=== PATIENT | male | born 1935 | race Caucasian/White ===

== ENCOUNTER 2019-07-15 20:23 | Observation (INO) | payer MEDICARE, BC ==
--- NOTE | 2019-07-15 20:40 | ED ---
Shortness of Breath - HPI Summary HPI Summary: Patient is a 83 y/o M w/ Hx of COPD who presents to [facility] via EMS with complaints of SOB onsetting 1700 07/15/19. EMS administered two duonebs and 10 mg dexamethasone, patient's o2 sat is reported to have improved from 84 to 100% on RA. He states that he was feeling fine earlier today and states that Sx are resolved at present. Patient additionally makes note of a cough productive of yellow-ernesto phlegm. Fever is denied. PMHx of CHF and pacemaker is noted. He denies chest pain and states that he did not take nitro. EMS reports BG of 103, BP in 150s, EKG showed SR with rate in 70s. On triage, pain is denied. Home medications and allergies are reviewed. - History of Current Complaint Chief Complaint: EDShortnessOfBreath Time Seen by Provider: 07/15/19 20:26 Hx Obtained From: Patient, EMS Onset/Duration: Lasting Hours, Resolved Current Severity: None Alleviating Factors: EMS Tx Associated Signs & Symptoms: Cough (Productive) - Allergy/Home Medications Allergies/Adverse Reactions: Allergies Allergy/AdvReac Type Severity Reaction Status Date / Time ertapenem Allergy Severe Hives Verified 07/16/19 03:51 meperidine Allergy Intermediate Rash Verified 07/16/19 03:51 Home Medications: Home Medications Bumetanide 1 mg PO QAM 07/15/19 [History Confirmed 07/16/19] Glimepiride (NF) 2 mg PO BID 07/15/19 [History Confirmed 07/15/19] PMH/Surg Hx/FS Hx/Imm Hx Endocrine/Hematology History: Reports: Hx Anticoagulant Therapy, Hx Diabetes Denies: Hx Blood Disorders, Hx Blood Transfusions, Hx Bone Marrow Disease, Hx Systemic Lupus Erythematosus, Hx Sickle Cell Disease, Hx Thyroid Disease, Hx Anemia, Hx Unexplained Bleeding, Other Endocrine/Hematological Disorders Cardiovascular History: Reports: Hx Angina, Hx Auto Implanted Cardiovert Defib, Hx Congestive Heart Failure, Hx Coronary Artery Disease, Hx Hypercholesterolemia , Hx Hypertension, Hx Myocardial Infarction, Hx Pacemaker/ICD, Hx Rheumatic Fever Denies: Hx Aneurysm, Hx Angioplasty, Hx Cardiac Arrest, Hx Cardiomegaly, Hx Congenital Heart Disease, Hx Deep Vein Thrombosis, Hx Hypotension, Hx Peripheral Vascular Disease, Hx Syncope, Hx Valvular Heart Disease, Other Cardiovascular Problems/Disorders Respiratory History: Reports: Hx Chronic Obstructive Pulmonary Disease (COPD) Denies: Hx Asthma GI History: Reports: Other GI Disorders History: Reports: Hx Kidney Stones - PRESENTLY, Other Problems/Disorders - HX OF KIDNEY STONES Denies: Hx Renal Disease Sensory History: Reports: Hx Contacts or Glasses Opthamlomology History: Reports: Hx Contacts or Glasses - Surgical History Surgery Procedure, Year, and Place: hernia repair 1969, TRIPLE BYPASS, [facility] Hx Anesthesia Reactions: No Infectious Disease History: No Infectious Disease History: Denies: Hx Clostridium Difficile, Hx Hepatitis, Hx Human Immunodeficiency Virus (HIV), Hx Shingles, Hx Tuberculosis, History Other Infectious Disease, Traveled Outside the [place] in Last 30 Days - Family History Known Family History: Negative: Cardiac Disease - Social History Alcohol Use: Occasionally Substance Use Type: Reports: None Smoking Status (MU): Former Smoker Type: Cigarettes Amount Used/How Often: 40 Have You Smoked in the Last Year: Yes Review of Systems Negative: Fever Negative: Chest Pain Positive: Shortness Of Breath, Cough All Other Systems Reviewed And Are Negative: Yes Physical Exam - Summary Physical Exam Summary: Appearance: Well-appearing, Well-nourished, Elderly man who is in mild distress. Skin: Warm, dry, no obvious rash Eyes: sclera anicteric, no conjunctival pallor ENT: mucous membranes moist, pharynx appears normal Neck: Supple, nontender, no JVD Respiratory: Tachypnea is noted. Breath sounds are diminished throughout, no crackles. There is slight wheezing upon expiration. Cardiovascular: Normal S1, S2. No murmurs. Normal distal pulses in tibial and radial bilaterally. Abdomen: Soft, nontender, normal active bowel sounds present Musculoskeletal: Normal, Strength/ROM Intact, No edema Neurological: A&Ox3, awake and alert, mentation is normal, speech is fluent and appropriate Psychiatric: affect is normal, does not appear anxious or depressed Triage Information Reviewed: Yes Vital Signs On Initial Exam: Initial Vitals Temp Pulse Resp BP Pulse Ox 97.5 F 84 20 158/71 95 07/15/19 20:26 07/15/19 20:26 07/15/19 20:26 07/15/19 20:26 07/15/19 20:26 Vital Signs Reviewed: Yes Diagnostics - Vital Signs Vital Signs Temp Pulse Resp BP Pulse Ox 07/15/19 20:26 97.5 F 84 20 158/71 95 - Laboratory Result Diagrams: 07/15/19 20:38 07/16/19 05:46 Lab Statement: Any lab studies that have been ordered have been reviewed, and results considered in the medical decision making process. - Radiology CXR Radiology Interpretation Completed By: ED Physician Summary of Radiographic Findings: No acute process, pending official report. - EKG 2037 Cardiac Rate: NL - rate of 82 BPM EKG Rhythm: Sinus Rhythm Summary of EKG Findings: EKG showed NSR with rate of 82 BPM, inferior infarct, age indeterminate noted. This EKG was reviewed and interpreted by ED physician. Re-Evaluation - Re-Evaluation First Eval Re-Evaluation Time: 21:22 Change: Improved Comment: Patient reports that he feels better. There are no objective signs of respiratory distress. Patient has improved aeration, but breath sounds are fairly diminished with wheezing. O2 will be turned off and he will be ambulated. Second Eval Re-Evaluation Time: 21:31 Comment: Patient was ambulated on RA, o2 was 84%. Neb treatment to be administered. Third Eval Re-Evaluation Time: 22:54 Change: Improved Comment: Pt's O2sat is low, mid 80's on RA, but he looks better, no respiratory distress and definitely improved aeration. The hypoxemia may end up being transient, but difficult to tell for sure at this point. Course/Dx - Course Course Of Treatment: Patient is a 83 y/o M w/ Hx of COPD who presents to [facility] via EMS with complaints of SOB onsetting 1700 07/15/19. EMS administered two duonebs and 10 mg dexamethasone, patient's o2 sat is reported to have improved from 84 to 100% on RA. He states that he was feeling fine earlier today and states that Sx are resolved at present. Patient additionally makes note of a cough productive of yellow-ernesto phlegm. Fever is denied. PMHx of CHF and pacemaker is noted. He denies chest pain and states that he did not take nitro. EMS reports BG of 103, BP in 150s, EKG showed SR with rate in 70s. On physical exam, patient is noted to be in mild distress. He has diminished breath sounds throughout with slight wheeze upon expiration. No crackles, no JVD, and no edema are noted. EKG showed NSR with rate of 82 BPM, inferior infarct, age indeterminate noted. Bloodwork was obtained. Abnormal values include RBC 3.84, Hgb 13, Hct 39, MCV 101, MCH 34, RDW 17, BUN 39, creatinine 1.48, BUN/ creatinine ratio 26.4, glucose 135, BNP 616. Trop was negative. CXR showed no acute process. During ED course, patient received albuterol, 2.5 mg INH. 2335 - Patient's case was discussed with Dr. Louise, Dr. Louise accepts the patient for admission. - Diagnoses Provider Diagnoses: COPD exacerbation - Physician Notifications Discussed Care of Patient With: Rey Louise Time Discussed With Above Provider: 23:35 Instructed by Provider To: Other - 2335 - Patient's case was discussed with Dr. Louise, Dr. Louise accepts the patient for admission. Discharge ED - Sign-Out/Discharge Documenting (check all that apply): Patient Departure - admit Patient Received Moderate/Deep Sedation with Procedure: No - Discharge Plan Condition: Improved Disposition: ADMITTED TO [facility] - Billing Disposition and Condition Condition: IMPROVED Disposition: Admitted to [facility] - Attestation Statements Document Initiated by Sparkle: Yes Documenting Scribe: BETH MARADIAGA Provider For Whom Sparkle is Documenting (Include Credential): PAULETTE XAVIER MD Scribe Attestation: BETH Garcia, scribed for PAULETTE XAVIER MD on 07/17/19 at 0514. Scribe Documentation Reviewed: Yes Provider Attestation: The documentation as recorded by the BETH estrella accurately reflects the service I personally performed and the decisions made by me, PAULETTE XAVIER MD Status of Scribe Document: Viewed
--- OUTSIDE RECORDS SUMMARY | 2019-07-15 20:46 | XMS REPORT | Summary of Care ---
:1935 Author Organization [facility] Address [address] [facility] GR[place] [address] Care Team Providers Name Role Phone Naveen Isbell MD Primary Care Provider Reason for Visit Reason Comments Diabetes Mellitus Pt reports not checking blood sugar Follow Up Encounter Details Date Type Department Care Team Description 07/12/2019 Office Visit [facility] Venecia, DM (diabetes mellitus), [address] [facility], [facility] type 2, [place] [address] [address] with complications [phone] [place] ([facility]) (Primary Dx) GRISEL GONZALEZ [address] Allergies Active Allergy Reactions Severity Noted Date Comments Combivent Respimat Cardiac Reaction 06/14/2016 Ertapenem Sodium Rash Medium 06/05/2007 Drug name Invanz Demerol Unknown Reaction 09/06/2015 documented as of this encounter (statuses as of 07/12/2019) Medications Medication Sig Dispensed Refills Start Date End Date Status GLUCOSAMINE CHONDRO Take 1 Tab by 0 Active COMPLEX PO mouth DAILY. Lancets Does not apply 1 Each by Does not 100 Each 3 02/20/2010 Active Misc apply route DIRECTED. Contour lancets Blood Glucose 1 Each 120 Strip 3 07/06/2011 Active Monitoring Suppl DIRECTED. contour (BLOOD GLUCOSE TEST brand test strips STRIPS STRP) Multiple Take by mouth. 0 Active Vitamins-Minerals (MULTI FOR HIM 50+ PO) [place]-3 Fatty Acids Take 1 Cap by 0 Active (FISH OIL) 1000 MG mouth DAILY. Oral Cap acetaminophen (PAIN Take 650 mg by 0 Active RELIEVER) 325 MG Oral mouth EVERY FOUR Tab HOURS NEEDED. allopurinol (ZYLOPRIM) Take 300 mg by 0 Active 300 MG Oral Tab mouth DAILY. pregabalin (LYRICA) 50 Take 1 Cap by 15 Cap 0 08/22/2014 Active MG Oral Cap mouth THREE TIMES DAILY. meclizine (ANTIVERT) Take 12.5 mg by 0 Active 12.5 MG Oral Tab mouth NEEDED. atorvastatin (LIPITOR) TAKE ONE TABLET BY 90 Tab 3 10/25/2017 Active 10 MG Oral Tab MOUTH EVERY DAY albuterol HFA Take 2 Puffs by 1 Inhaler 0 04/23/2018 Active (VENTOLIN) 108 (90 inhalation FOUR Base) MCG/ACT TIMES DAILY. Inhalation Aero Soln Acetaminophen (TYLENOL Take 1,000 mg by 0 Active ARTHRITIS PAIN PO) mouth TWO TIMES DAILY NEEDED. Herpes zoster pain nitroglycerin Place 1 Tab under 25 Tab 4 08/01/2018 Active (NITROSTAT) 0.4 MG tongue EVERY FIVE Sublingual SL MINUTES NEEDED TabIndications: ASCVD for chest pain. (arteriosclerotic cardiovascular disease), Atrial fibrillation, unspecified type (HCC), Ischemic cardiomyopathy dofetilide (TIKOSYN) Take 1 Cap by 180 Cap 3 01/05/2019 Active 125 MCG Oral Cap mouth TWICE DAILY. bumetanide (BUMEX) 0.5 Take 1 Tab by 90 Tab 3 02/05/2019 Active MG Oral Tab mouth DAILY. carvedilol (COREG) 25 TAKE ONE TABLET BY 180 Tab 3 05/07/2019 Active MG Oral MOUTH TWICE A DAY TabIndications: WITH MEALS Chronic systolic heart (BREAKFAST AND failure (HCC), DINNER) Ventricular tachycardia (HCC) TRADJENTA 5 MG Oral TAKE ONE TABLET BY 90 Tab 3 05/07/2019 Active Tab MOUTH EVERY DAY Benzonatate (TESSALON Take by mouth. 0 Active PERLES PO) clopidogrel (PLAVIX) TAKE ONE TABLET BY 90 Tab 3 05/25/2019 Active 75 MG Oral Tab MOUTH EVERY DAY glimepiride (AMARYL) 2 TAKE ONE TABLET BY 60 Tab 2 06/19/2019 Active MG Oral Tab MOUTH TWICE A DAY warfarin (COUMADIN) 3 Take 1 Tab by 100 Tab 3 06/26/2019 Active MG Oral mouth DAILY. As TabIndications: Atrial directed which is fibrillation, 3mg daily unspecified type (HCC) documented as of this encounter (statuses as of 07/12/2019) Active Problems Problem Noted Date Encounter for aftercare for long-term (current) use of antibiotics 05/24/2017 Overview: Managed by [facility] Referring Provider: Ada Soni Indication: afib Target Range 2.0 -3.0 Anticoagulant Warfarin Additional factors influencing anticoagulation: CHADS2 score of 4 for age > 75, hypertension, diabetes, LV dysfunction [id number] score of 6 for age > 75, hypertension, diabetes, LV dysfunction, vascular disease Allopurinol increases warfarin effect Clopidogrel significantly increases bleeding risk [place] 3 fatty acid increases bleeding risk Updated Referral: 02/2017, 06/29/18 Updated ACS Orders: 05/23/17, 07/17/18 Shortness of breath 05/10/2016 Paroxysmal atrial fibrillation 02/17/2016 Atrial fibrillation, unspecified 09/09/2015 Ventricular tachycardia 09/07/2015 Hypertension 09/06/2015 Diabetes 09/06/2015 ICD (implantable cardioverter-defibrillator) battery depletion 12/16/2014 Neuropathy 05/31/2011 Atherosclerosis of arteries of extremities 05/31/2011 Encounter for long-term (current) use of anticoagulants 04/13/2011 Overview: Referred by Dr Cote for afib. Target range 2.0-3.0 Updated referral 08/2013 Updated order 10/02/13 ASCVD (arteriosclerotic cardiovascular disease) 02/17/2009 Overview: S/P CABG X3 ON 12/08/98 PREOPERATIVE DIAGNOSES: Unstable angina, coronary artery disease, S/P inferior wall ME on 12/02/98. POSTOPERATIVE DIAGNOSES: Same. TITLE OF OPERATION: CORONARY ARTERY BYPASS GRAFTING TIMES THREE (MARTINEZ TO LAD, SV TO PD and DIAGONAL-1) and TRANSESOPHAGEAL ECHOCARDIOGRAM. SURGEON: BINTA VALENTE M.D. Dyslipidemia 02/17/2009 CHF (congestive heart failure) 02/17/2009 Automatic implantable cardiac defibrillator in situ 01/08/2009 Overview: OR DATE: 06/23/2007 OPERATIVE REPORT AP: OREN COTE MD Voice Job ID: [id number] PROCEDURE: Automatic implantable cardioverter defibrillator placement. INDICATION FOR PROCEDURE: Ischemic cardiomyopathy. Left ventricular ejection fraction 25%. Symptoms of heart failure with recent admission for heart failure, presently [place] Heart Association class II symptoms. Past myocardial infarction. SURGEON: Dr. Cote. DEVICE: [place] II VR V-[id number], serial number [id number], with Riata right ventricular lead, serial number [id number]. Mobitz (type) II atrioventricular block 11/07/2008 Paroxysmal ventricular tachycardia 08/28/2007 Overview: S/P AICD/IMPLANT DATED: 06/23/07 Ischemic cardiomyopathy 06/22/2007 Overview: JACOB \\\\ ([facility]) Mildly to moderately reduced left ventricular systolic function with EF 40% with infertior posterior wall hypokinesis to akinesis, and borderline mild LVH. Dilated left atrium with trace mitral insufficiency. Dilated right-sided chambers of the heart with at least mild tricuspid insufficiency and moderate pulmonary hypertension. Aortic valve sclerosis with trace aortic insufficiency. ECHO 07/05/07 The aortic valve is trileaflet, opens well in systole, slightly sclerotic. There was normal Doppler examination. There is no evidence of aortic valve stenosis or regurgitation. There is left ventricular hypertrophy and mild dilatation. The inferoposterior wall is akinetic and lateral levin are severely hypokinetic to akinetic. The anterior septum and anterior wall seems to be the better susanna segment. Left ventricular ejection fraction is 20% to 25% with a qualitative and quantitative assessment. 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 06/05/2007 Type 2 diabetes mellitus with complication 06/01/2007 Overview: Diagnosis 2006 Atrial fibrillation 05/29/2007 Unspecified essential hypertension 09/13/2006 documented as of this encounter (statuses as of 07/12/2019) Resolved Problems Problem Noted Date Resolved Date Encounter for therapeutic drug monitoring 05/19/2010 02/16/2011 Other specified cardiac dysrhythmias(427.89) 07/18/2008 02/17/2009 Other symptoms involving respiratory system and chest 04/09/2008 02/17/2009 Mechanical complication of cardiac device, implant, and 09/29/2007 02/17/2009 graft, other Other complications due to other cardiac device, implant, 09/17/20072008 and graft 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 05/29/2007 12/15/2010 Overview: Managed by: [facility] Referring Provider: Mackenzie Indication: Afib Target Range: 2.0-3.0 Duration: Indefinite Additional factors influencing anticoagulation: CHADS2 score of 4 for age > 75, hypertension, diabetes, LV dysfunction [id number] score of 6 for age > 75, hypertension, diabetes, LV dysfunction, vascular disease Allopurinol increases warfarin effect Clopidogrel significantly increases bleeding risk [place] 3 fatty acid increases bleeding risk Updated Referral: 01/15/15, 02/17/16 Updated ACS Orders: 01/15/15, Chest pain, unspecified 04/21/2007 02/17/2009 Other and unspecified hyperlipidemia 04/21/2007 02/17/2009 Coronary atherosclerosis of unspecified type of vessel, solomon 08/12/2006 or graft documented as of this encounter (statuses as of 07/12/2019) Immunizations Name Administration Dates Next Due Influenza Vaccine High Dose 07/31/2018 Influenza Vaccine Whole 08/14/2008 documented as of this encounter Social History Tobacco Use Types Packs/Day Years Used Date Former Smoker Cigarettes 2 50 Quit: 10/31/1987 Smokeless Tobacco: Never Used Alcohol Use Drinks/Week oz/Week Comments No 0 Standard drinks or equivalent 0.0 Sex Assigned at Date Recorded Not on file Job Start Date Occupation Industry Not on file Not on file Not on file Travel History Travel Start Travel End No recent travel history available. documented as of this encounter Last Filed Vital Signs Vital Sign Reading Time Taken Comments Blood Pressure 124/50 07/12/2019 1:27 PM EDT Pulse 72 07/12/2019 1:27 PM EDT Temperature - - Respiratory Rate - - Oxygen Saturation - - Inhaled Oxygen Concentration - - Weight 83.6 kg (184 lb 4.8 oz) 07/12/2019 1:27 PM EDT Height 172.7 cm (5' 8") 07/12/2019 1:27 PM EDT Body Mass Index 28.02 07/12/2019 1:27 PM EDT documented in this encounter Progress Notes Jazlyn Cuadra FNP - 07/12/2019 4:00 PM EDT NAME: Sanford Silva : 1935 DATE: 07/12/2019 SUBJECTIVE: Sanford Silva is a 83-y.o. male is here for a follow-up for his Diabetes Mellitus type 2 for 10 years. Did not bring blood sugars. Admits that he rarely tests. Will do lab draw A1C He does not strictly adhere to diet. He does not exercise but is active. Denies any episode of hypoglycemia requiring assistance. Senses low at 60. Is current on opthalmologic exam. Has history of non-proliferative retinopathy. Has distal paresthesias on lyrica Has stage III CKD Denies chest pain or dyspnea. No recent illness or flu. Will soon be moving to [place] Current medications, allergies,and all history have been reviewed. Current Outpatient Medications Medication Sig acetaminophen (PAIN RELIEVER) 325 MG Oral Tab Take 650 mg by mouth EVERY FOUR HOURS NEEDED. Acetaminophen (TYLENOL ARTHRITIS PAIN PO) Take 1,000 mg by mouth TWO TIMES DAILY NEEDED. Herpes zoster pain albuterol HFA (VENTOLIN) 108 (90 Base) MCG/ACT Inhalation Aero Soln Take 2 Puffs by inhalation FOUR TIMES DAILY. allopurinol (ZYLOPRIM) 300 MG Oral Tab Take 300 mg by mouth DAILY. atorvastatin (LIPITOR) 10 MG Oral Tab TAKE ONE TABLET BY MOUTH EVERY DAY Benzonatate (TESSALON PERLES PO) Take by mouth. Blood Glucose Monitoring Suppl (BLOOD GLUCOSE TEST STRIPS STRP) 1 Each DIRECTED. contour brand test strips bumetanide (BUMEX) 0.5 MG Oral Tab Take 1 Tab by mouth DAILY. carvedilol (COREG) 25 MG Oral Tab TAKE ONE TABLET BY MOUTH TWICE A DAY WITH MEALS (BREAKFAST AND DINNER) clopidogrel (PLAVIX) 75 MG Oral Tab TAKE ONE TABLET BY MOUTH EVERY DAY dofetilide (TIKOSYN) 125 MCG Oral Cap Take 1 Cap by mouth TWICE DAILY. glimepiride (AMARYL) 2 MG Oral Tab TAKE ONE TABLET BY MOUTH TWICE A DAY GLUCOSAMINE CHONDRO COMPLEX PO Take 1 Tab by mouth DAILY. Lancets Does not apply Misc 1 Each by Does not apply route DIRECTED. Contour lancets meclizine (ANTIVERT) 12.5 MG Oral Tab Take 12.5 mg by mouth NEEDED. Multiple Vitamins-Minerals (MULTI FOR HIM 50+ PO) Take by mouth. nitroglycerin (NITROSTAT) 0.4 MG Sublingual SL Tab Place 1 Tab under tongue EVERY FIVE MINUTES NEEDED for chest pain. [place]-3 Fatty Acids (FISH OIL) 1000 MG Oral Cap Take 1 Cap by mouth DAILY. pregabalin (LYRICA) 50 MG Oral Cap Take 1 Cap by mouth THREE TIMES DAILY. TRADJENTA 5 MG Oral Tab TAKE ONE TABLET BY MOUTH EVERY DAY warfarin (COUMADIN) 3 MG Oral Tab Take 1 Tab by mouth DAILY. As directed which is 3mg daily No current facility-administered medications for this visit. Allergies Allergen Reactions Ertapenem Sodium Rash Drug name Hortencia Fitzpatrick Respimat Cardiac Reaction Meperidine Hcl [Demerol] Unknown Reaction Past Medical History: Diagnosis Date AICD (automatic cardioverter/defibrillator) present 12/2014 gen change ASCVD 1998 S/P CABG X3 Atrial fibrillation (HCC) 05/29/2007 Coronary atherosclerosis of unspecified type of vessel, solomon or graft 08/12/2006 S/P CABG Hx of CABG 1998 Ischemic cardiomyopathy EF 20-25% PER ECHO 07/05/07 Mechanical complication of cardiac device, implant, and graft, other Mobitz (type) II atrioventricular block 11/07/2008 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 06/05/2007 Other and unspecified hyperlipidemia 04/21/2007 Other complications due to other cardiac device, implant, and graft 09/17 Other specified cardiac dysrhythmias(427.89) 07/18/2008 Other symptoms involving respiratory system and chest 04/09/2008 Paroxysmal ventricular tachycardia (HCC) 08/28/2007 PRIM CARDIOMYOPATHY NEC 06/22/2007 Type II or unspecified type diabetes mellitus without mention of complication, not stated as uncontrolled 06/01/2007 dx 2006 Unspecified essential hypertension 09/13/2006 Social History Socioeconomic History Marital status: Spouse name: Not on file Number of children: Not on file Years of education: Not on file Highest education level: Not on file Occupational History Not on file Social Needs Financial resource strain: Not on file Food insecurity: Worry: Not on file Inability: Not on file Transportation needs: Medical: Not on file Non-medical: Not on file Tobacco Use Smoking status: Former Smoker Packs/day: 2.00 Years: 50.00 Pack years: 100.00 Types: Cigarettes Last attempt to quit: 10/31/1987 Years since quittin.7 Smokeless tobacco: Never Used Substance and Sexual Activity Alcohol use: No Alcohol/week: 0.0 standard drinks Drug use: No Sexual activity: Not on file Lifestyle Physical activity: Days per week: Not on file Minutes per session: Not on file Stress: Not on file Relationships Social connections: Talks on phone: Not on file Gets together: Not on file Attends shinto service: Not on file Active member of club or organization: Not on file Attends meetings of clubs or organizations: Not on file Relationship status: Not on file Intimate partner violence: Fear of current or ex partner: Not on file Emotionally abused: Not on file Physically abused: Not on file Forced sexual activity: Not on file Other Topics Concern Not on file Social History Narrative Not on file Family History Problem Relation Age of Onset Diabetes No family history Glaucoma No family history Blindness No family history Macular Degeneration No family history Hypertension No family history OBJECTIVE: Blood pressure 124/50, pulse 72, height 5' 8" (1.727 m), weight 184 lb 4.8 oz (83.6 kg). BP 124/50 | Pulse 72 | Ht 5' 8" (1.727 m) | Wt 184 lb 4.8 oz (83.6 kg) | BMI 28.02 kg/m General: no distress. Eyes: conjunctiva pink Neck: no thyroid enlargement or nodules. Heart: regular rate and rhythm, no murmur. Lungs: Clear to auscultation. Abdomen: bowel sounds present Left foot Diabetic foot exam: Visual exam: normal Sensory: Filament testing diminished Pulse: a pulse was present Right foot diabetic exam Visual exam: normal Sensory: Filament testing diminished Pulse: a pulse was present Extremities: No edema. Psych: Alert and oriented. Lab Results Component Value Date GLYCO 6.4 (H) 12/14/2018 GLYCO 6.8 (H) 04/22/2007 Lab Results Component Value Date GLYCOPOCT 6.9 (A) 01/28/2015 GLYCOPOCT 6.4 06/10/2014 GLYCOPOCT 6.3 01/08/2014 ASSESSMENT and PLAN: 1. 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 Dietary restriction discuss 2. Nephropathy Labs today to assess status 3. Hypertension Adequately controlled 4. Neuropathy Stable on arnulfoa [facility] Section of Endocrinology 07/12/2019 13:44 1 :46 PM EDTdocumented in this encounter Plan of Treatment Date Type Specialty Care Team Description 07/12/2019 AntiCoag Anticoagulation Arrived 08/28/2019 [facility] Arrhythmia [facility] 12/06/2019 Office Visit Cardiology Jorge Luther MD [address] [place] [address] [phone] 12/11/2019 [facility]rhythmia [facility] Name Type Priority Associated Diagnoses Order Schedule GLYCOHEMOGLOBIN A1C Lab Routine DM (diabetes mellitus), Expected: 2018 type 2, uncontrolled with (Approximate), complications (HCC) Expires: 01/08/2020 BASIC METABOLIC PANEL Lab Routine DM (diabetes mellitus), Expected: 2018 type 2, uncontrolled with (Approximate), complications (HCC) Expires: 07/12/2020 Health Maintenance Due Date Last Done Comments MEDICARE ANNUAL WELLNESS 1935 VISIT DEPRESSION SCREENING 1949 HIV SCREENING 1952 ZOSTER IMMUNIZATION SERIES 1987 (1 of 2) FALL RISK ASSESSMENT 2002 PNEUMOCOCCAL 65+YRS (1 of 2 2002 - PCV13) URINE MICROALBUMIN 08/07/2014 08/07/2013 HEMOGLOBIN A1C 06/13/2019 12/14/2018, 06/08/2018, 12/01/2016, Additional history exists INFLUENZA VACCINE (#1) 2019 07/31/2018, 08/14/2008 FOOT EXAM 12/14/2019 12/14/2018, 12/14/2018, 12/14/2018, Additional history exists Diabetic Eye Exam 04/03/2020 04/03/2019, 04/03/2019, 04/03/2019, Additional history exists HPV IMMUNIZATION SERIES Aged Out No longer eligible based on patient's age to complete this topic MENINGOCOCCAL VACCINE IMM Aged Out No longer eligible based on patient's age to complete this topic documented as of this encounter Implants Implanted Type Area Watch Band Assembler Device Shelf Model / Identifier Expiration Serial / Date Lot Icd, Current - [id number] Left: ST KEN 11/30/2008 [id number] / Implanted: Qty: 1 on 04/22/2008 at [facility] Chest MEDICAL/ [place] [id number] / ER Lead [id number]/[address] KEN [id number] / Implanted: Qty: 1 on 04/22/2008 at [facility] [employer] [id number] / Alberto Marie Dr Icd Left: [employer] [id number] / Implanted: Qty: 1 on 12/16/2014 by Oren Cote MD at [facility] Chest [id number] / Tyrx Antibacterial Pouch Left: [employer] [id number] / Implanted: Qty: 1 on 12/16/2014 by Oren Cote MD at [facility] Chest / [id number] documented as of this encounter Results Not on filedocumented in this encounter Visit Diagnoses Diagnosis DM (diabetes mellitus), type 2, uncontrolled with complications (HCC) - Primary Type II or unspecified type diabetes mellitus with unspecified complication, uncontrolled documented in this encounter Insurance Payer Benefit Plan / Subscriber ID Effective Dates Phone Address Type Group MEDICARE MEDICARE PART A & xxxxxxxxxxx 2002-Present Medicare B GURWINDER DIAZ xxxxxxxxxxxx 2014-Present Gurwinder CARVER PPO Guarantor Name Account Type Relation to Date of Phone Billing Address Patient Sanford Silva Personal/Famil 1935 [address] (Home) [place], [place] [phone] [id number] (Work) documented as of this encounter
[2019-07-15 20:48] LABS: ABS Eosinophils 0.3 10^3/ul (0-0.6); ABS Lymphocytes 2.4 10^3/ul (1.0-4.8); ABS Monocytes 0.6 10^3/ul (0-0.8); ABS Neutrophils 6.5 10^3/ul (1.5-7.7); Eosinophil % 3.4 %; Hematocrit 39 % (42-52); Lymphocyte % 24.1 %; Mean Corpuscular HGB Conc 34 g/dL (31-36); Mean Corpuscular Hemoglobin 34 pg (27-31); Mean Corpuscular Volume 101 fL (80-94); Mean Platelet Volume 7.4 fL (7.4-10.4); Nucleated Red Blood Cells % 0.3; Platelet Count 173 10^3/uL (150-450); Red Blood Count 3.84 10^6 /uL (4.18-5.48); Red Cell Distribution Width 17 % (10-15); White Blood Count 9.8 10^3/uL (3.5-10.8)
[2019-07-15 21:04] LABS: Albumin 4.3 g/dL (3.2-5.2); Albumin/Globulin Ratio 1.3 (1-3); BUN/Creatinine Ratio 26.4 (8-20); Calcium 8.9 mg/dL (8.6-10.3); EGFR African American 55.2 (>60); EGFR Non-African American 45.6 (>60); Globulin 3.3 g/dL (2-4); Potassium 4.5 mmol/L (3.5-5.0); Total Bilirubin 0.4 mg/dL (0.2-1.0); Total Protein 7.6 g/dL (6.4-8.9)
[2019-07-15 21:06] LABS: Troponin I 0.01 ng/mL (<0.04)
[2019-07-15] MEDS ORDERED: Albuterol 2.5 MG/3 ML NEB.SOL* (0.083%) INH ONE (21:31)
[2019-07-16] MEDS ORDERED: Nitroglycerin TAB 0.4 MG* 0.4 MG TAB SL PRN (00:37)
[2019-07-16] MEDS ORDERED: Albuterol/Ipratropium NEB.SOL* Albuterol 2.5 MG/Ipratropium 0.5 MG 3 ML INH PRN (00:41)
[2019-07-16 00:55] LABS: INR 2.53 (0.82-1.09)
[2019-07-16 01:09] LABS: C Reactive Protein 9.53 mg/L (<8.01)
[2019-07-16] MEDS ORDERED: Carvedilol TAB* 25 MG PO SCH (01:30)
[2019-07-16] MEDS ORDERED: Dofetilide CAP* 125 MCG PO SCH (02:00)
[2019-07-16] MEDS: DOXYcycline CAP(*) 100 MG PO SCH ×2 (04:10→08:15)
[2019-07-16] MEDS: Pregabalin CAP(*) 50 MG PO SCH ×3 (04:10→12:52)
[2019-07-16] MEDS: Atorvastatin* 10 MG TAB PO SCH ×2 (04:10→08:15)
--- NOTE | 2019-07-16 05:37 | HP ---
HISTORY AND PHYSICAL: DATE OF ADMISSION: 07/16/19 ADMITTING PROVIDER: Rey Louise MD. PRIMARY CARE PROVIDER: Naveen Isbell MD. OUTPATIENT WELCOME CENTER ATTENDANT: Wale Luther MD. OUTPATIENT FISHING ACCESSORIES MAKER: Naveen Johnson MD. OUTPATIENT REAL ESTATE LOAN PROCESSOR: Jazlyn Cuadra NP. CHIEF COMPLAINT: Shortness of breath. HISTORY OF PRESENT ILLNESS: Sanford Silva is an 83-year-old male with past medical history of severe ischemic cardiomyopathy; CAD s/p CABG, hypertension, atrial fibrillation(on Coumadin and tikosyn), chronic kidney disease stage 3 to 4, sustained V tach s/p AICD, former smoker with approximately 70 pack- years (? COPD), gpw-ilvgsrh-nwdeqwbvk diabetes mellitus. On 07/15/19, the day prior to admission, he felt progressive shortness of breath and had been having a productive cough with yellow sputum for the last few weeks. He denied any wheezing. He had forgotten his inhaler, which he does not use often. With EMS , he was found to be hypoxic to 84% on room air, got DuoNebs x2 with EMS and 10 mg of dexamethasone, and he was transported to [facility] Emergency Room. He had a reportedly tight lung exam. He got another nebulizer and desatted to 83% with ambulation. He was referred to the hospitalist service for further evaluation. His BNP was 616. He was without leukocytosis, afebrile, blood pressure 158/ 71. Creatinine 1.48. He follows with Dr. Luther and gets echocardiograms every 6 months or so, but does not have any specific information about his heart failure, other than he has been told it will not improve. His last echo in our system was 09/04/15, which showed ejection fraction of 20% to 25%, there was [id number] tricuspid regurgitation, mild mitral valve regurgitation, borderline pulmonary hypertension, and trace pulmonic regurgitation. He states he has never seen a block feeder or had pulmonary function tests. Denies any nausea. Has knows of no hx of COPD as a formal diagnosis but is notably prescribed Combivent and ipratroprium nebs. Denies any history of stroke. Has seen Dr. Toney for what he states initially is gallstones, but may in fact be kidney stones. PAST MEDICAL HISTORY: 1. Severe ischemic cardiomyopathy. 2. Heart failure with reduced ejection fraction, unknown current EF, last was 20% to 25% in 2015. 3. Paroxysmal atrial fibrillation, on Coumadin and Tikosyn. 4. Hyperlipidemia. 5. Oai-iftluvt-bavcfruzn diabetes mellitus. 6. ?COPD given 70+ pack-years former smoking. 7. Sustained V-tach, status post AICD in 2006. 8. CAD, status post CABG in 1998, triple bypass. MEDICATIONS: Include: 1. Bumex 0.5 mg twice a day. 2. Warfarin 3 mg daily. 3. Lyrica 50 mg p.o. t.i.d. 4. Klemme-3 fatty acids 1000 mg p.o. daily. 5. Nitroglycerin 0.4 mg sublingual q.5 minutes p.r.n., has not used in many years. 6. Multivitamin tab, 1 tab p.o. daily. 7. Ipratropium nebulizer 0.5 mg inhaled t.i.d. p.r.n. 8. Glucosamine chondroitin 1 capsule p.o. daily. 9. Glimepiride 2 mg p.o. b.i.d. 10. Tikosyn 125 mcg p.o. q.12 hours. 11. Plavix 75 mg p.o. daily. 12. Carvedilol 25 mg p.o. b.i.d. 13. Atorvastatin 10 mg p.o. daily. 14. Allopurinol 300 mg p.o. daily p.r.n. 15. Albuterol/ipratropium inhaler (Combivent) 2 puffs inhaled q.6 hours p.r.n. ALLERGIES: ERTAPENEM, severe hives; MEPERIDINE, rash. FAMILY MEDICAL HISTORY: His mother at age 70 of an operation for which "she should have gotten antibiotics prior to," but unclear exact cause. Father of a heart attack at age 70. He has 1 surviving brother and 3 brothers and 5 sisters, almost invariably dying of heart attacks at various ages, which he could not elucidate. SOCIAL HISTORY: The patient lives with his , Constanza, who is his medical surrogate. He is a former smoker between the ages of 12 and 50; 2 to 2-1/2 packs per day during that time, quit in 1987. He has no current alcohol use; he used to be a binge drinker every Jean for 20 years. No drug use. 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 He has a son. He desires to be DNR/ DNI. REVIEW OF SYSTEMS: A complete 14-point review of systems is negative, except as per HPI. He denies any orthopnea or paroxysmal nocturnal dyspnea. No bleeding in his bowel movements or abdominal pain. He does have a scale at home , but does not check his weight. He thinks he has gained about 4 to 5 pounds over the course of the last year. PHYSICAL EXAMINATION GENERAL APPEARANCE: In no acute distress. VITAL SIGNS: Temperature 97.5, pulse rate 83, satting initially 84% on room air at home; currently 95% on 2 L, blood pressure 158/71. HEENT: Normocephalic, atraumatic. Pupils are equally round and reactive to light. Extraocular motions are intact. No scleral icterus. NECK: Supple. He does have positive hepatojugular reflux with JVD at the angle of the mandible. LUNGS: With diffuse expiratory wheezing and some bilateral rales in the bases. Moderately tight air exchange. CARDIOVASCULAR: Regular rate and rhythm. No murmurs, rubs, or gallops. ABDOMEN: Soft, distended, nontender. No rebound or guarding. No East sign. EXTREMITIES: Warm, well perfused. Trace to 1+ pitting edema bilaterally. NEURO: Cranial nerves II through XII are grossly intact. SKIN: No lesions, no rashes. DIAGNOSTIC STUDIES/LAB DATA: Labs: White count 9.8, hemoglobin 13.0, hematocrit 39, platelets 173. Sodium 141, potassium 4.5, chloride 104, carbon dioxide 30, BUN 39, creatinine 1.48, glucose 135, calcium 8.9. Total bili 0.4, AST 20, ALT 55. Troponin 0.01, BNP 616. Albumin 4.3. Imaging: Formal read pending. No gross infiltrates. No pleural effusions. There is an AICD with wire in place. EKG: Demonstrated normal sinus rhythm. There is poor R-wave progression, heart rate is 82, normal axes, T-wave inversions in II; III; and aVF. These are unchanged from the 2016 EKG in terms of the T-wave inversions. QRS is 123. QTc is 491. ASSESSMENT AND PLAN: Sanford Silva is an 83-year-old male with past medical history of severe congestive heart failure, coronary artery disease; status post coronary artery bypass graft, 70 pack-years smoking, denying formal chronic obstructive pulmonary disease diagnosis, but is a somewhat limited historian, atrial fibrillation; on Coumadin and Tikosyn presenting with progressive shortness of breath over the last day and a few weeks of productive cough. 1. Acute Hypoxic Respiratory Failure. His lung exam is consistent with a mixture of both acute on chronic obstructive pulmonary disease exacerbation and likely some mild congestive heart failure with expiratory wheezing, rales at the bilateral bases, and moderately tight exam. He has got some steroids with EMS. We will continue 40 mg Solu-Medrol twice a day, continue albuterol/ ipratropium nebulizers q.6 hour schedule and q.2 hours p.r.n., adding Dulera twice a day and Spiriva at least on discharge with recommendation to follow up with pulmonology and get pulmonary function tests as he states it has not been done. I am giving him doxycycline and avoiding azithromycin given the Tikosyn that he is on for chronic obstructive pulmonary disease exacerbation and give him 40mg IV Lasix in the morning. Strict Is and Os, daily weights. We will try to get records from Dr. Luther's office. He thinks his last echocardiogram was in the spring of 2018, getting it every 6 months or so. 2. Acute on Chronic Severe systolic heart failure: continue his Coreg 25 mg p.o. b.i.d. He is on Bumex total of 1 mg (unclear if it is 0.5 twice a day versus once a day 1 mg) at home. Diuresis as above 3. Atrial fibrillation, continue his Tikosyn 125 b.i.d. We are adding on an INR and check his level. Continue warfarin 3 mg daily for now starting tomorrow , but may need to adjust that based off INR. 4. Now-ixoxfbb-kkoctabnn diabetes mellitus, we will check fingerstick glucose q.a.c. and h.s., especially in the setting of his steroid administration with likely postprandial hyperglycemia to be expected. Sliding scale insulin added. We will hold his Tradjenta, which is not on formulary here, and his glimepiride, which is also not on formulary. 5. Hyperlipidemia, continue Lipitor 10 mg daily. 6. Coronary artery disease, continue his nitroglycerin sublingual q.5 minutes p.r.n., though he has not required it in many years and he is chest pain free now. Troponin was negative. 7. For DVT prophylaxis, we are checking his INRs. He is already on coumadin. We will see if he is therapeutic. 8. For diet, we will put him on heart healthy, no caffeine, carbohydrate consistent. 9. He wants to be a DNR. We will check his records to see if he has a MOLST form; otherwise will have him sign one. Medical surrogate is his , Constanza. He is being admitted to observation status. [id number]/[facility] #: [id number] ISABEL
[2019-07-16 06:23] LABS: BUN/Creatinine Ratio 28.3 (8-20); Calcium 9.1 mg/dL (8.6-10.3); EGFR African American 53.5 (>60); EGFR Non-African American 44.2 (>60); Potassium 4.7 mmol/L (3.5-5.0)
[2019-07-16] MEDS: Mometasone/Formoter 200/5 MDI INH SCH ×2 (06:48→08:21)
[2019-07-16] MEDS ORDERED: methylPREDNISolone SOD 40 MG* 1 ML VIAL IV SCH (07:00)
[2019-07-16] MEDS ORDERED: Albuterol/Ipratropium NEB.SOL* Albuterol 2.5 MG/Ipratropium 0.5 MG 3 ML INH SCH (07:00)
[2019-07-16] MEDS ORDERED: Furosemide IV* 10 MG/ML VIAL (40 MG) IV ONE (07:00)
[2019-07-16] MEDS: Albuterol/Ipratropium NEB.SOL* Albuterol 2.5 MG/Ipratropium 0.5 MG 3 ML INH SCH ×2 (08:21→14:06)
[2019-07-16 08:51] LABS: Magnesium 1.9 mg/dL (1.9-2.7)
[2019-07-16] MEDS ORDERED: SPIRIVA Respimat* (tiotropium) 2.5 mcg/inh Inhaler INH SCH (09:00)
[2019-07-16] MEDS ORDERED: Bumetanide TAB* 2 MG PO SCH (09:00)
[2019-07-16] MEDS ORDERED: Clopidogrel TAB* 75 MG PO SCH (09:00)
[2019-07-16] MEDS ORDERED: Allopurinol TAB* 300 MG PO SCH (09:00)
--- NOTE | 2019-07-16 13:58 | PN ---
Subjective Date of Service: 07/16/19 Interval History: Brief update: Admitted this morning. Patient reports feeling much better. Still requiring supplemental O2 but able to wean somewhat. Pt denies wheezing, chest pain, orthopnea, LE edema. Reports he used to have an albuterol inhaler for SOB but didn't know what diagnosis he had. Objective Active Medications: Albuterol/Ipratropium (Duoneb (Albuterol 2.5 Mg/Ipratropium 0.5 Mg)) 1 neb INH Q2H PRN PRN Reason: SOB/WHEEZING Albuterol/Ipratropium (Duoneb (Albuterol 2.5 Mg/Ipratropium 0.5 Mg)) 1 neb INH [id number] AWAKE [facility] Last Admin: 07/16/19 08:21 Dose: 1 neb Allopurinol (Zyloprim Tab*) 300 mg PO DAILY [facility] Last Admin: 07/16/19 08:15 Dose: 300 mg Atorvastatin Calcium (Lipitor*) 10 mg PO DAILY [facility] Last Admin: 07/16/19 08:15 Dose: 10 mg Carvedilol (Coreg Tab*) 25 mg PO BID [facility] Last Admin: 07/16/19 04:10 Dose: 25 mg Clopidogrel Bisulfate (Plavix Tab*) 75 mg PO DAILY [facility] Last Admin: 07/16/19 08:15 Dose: 75 mg Dofetilide (Tikosyn Cap*) 125 mcg PO Q12HR [facility] Last Admin: 07/16/19 05:58 Dose: 125 mcg Doxycycline Hyclate (Vibramycin Cap(*)) 100 mg PO BID [facility] Last Admin: 07/16/19 08:15 Dose: 100 mg Nitroglycerin (Nitroglycerin Tab 0.4 Mg*) 0.4 mg SL Q5M PRN PRN Reason: PAIN - ANGINA Non-Formulary Medication (Bumetanide) 1 mg PO QAM [facility] Prednisone (Deltasone Tab*) 40 mg PO DAILY [facility] Stop: 07/19/19 09:01 Pregabalin (Lyrica Cap(*)) 50 mg PO TID [facility] Last Admin: 07/16/19 12:52 Dose: 50 mg Tiotropium [place] (Spiriva Respimat 2.5 Mcg) 2 puff INH DAILY [facility] Last Admin: 07/16/19 08:21 Dose: 2 puff Vital Signs - 8 hr 07/16/19 07/16/19 07/16/19 07:15 08:00 08:15 Temperature 97.7 F Pulse Rate 72 Respiratory 16 20 20 Rate Blood Pressure 120/56 (mmHg) O2 Sat by Pulse 92 Oximetry 07/16/19 07/16/19 08:23 12:52 Temperature Pulse Rate 75 Respiratory 16 20 Rate Blood Pressure (mmHg) O2 Sat by Pulse 95 Oximetry Oxygen Devices in Use Now: Nasal Cannula Appearance: appears well and younger than stated age; no increased WOB Eyes: No Scleral Icterus Ears/Nose/Mouth/Throat: Clear Oropharnyx, Mucous Membranes Moist Neck: NL Appearance and Movements; NL JVP Respiratory: - - mild expiratory wheeze diffusely Cardiovascular: NL Sounds; No Murmurs; No JVD, RRR Abdominal: NL Sounds; No Tenderness; No Distention, No Hepatosplenomegaly Extremities: No Edema Skin: No Rash or Ulcers Neurological: Alert and Oriented x 3 Result Diagrams: 07/15/19 20:38 07/16/19 05:46 Assess/Plan/Problems-Billing Assessment: 83M with HFrEf 20-25% s/p ICD, CAD s/p CABG, afib on warfarin and Tikosyn, significant smoking history and prior albuterol use without COPD diagnosis, presents after significant dust exposure with cough and SOB, found with wheeze and without evidence of volume overload on exam. - Patient Problems (1) COPD (chronic obstructive pulmonary disease) Comment: with exacerbation. Did not have this diagnosis previously but did have an albuterol inh at home for unknown dx. Was not on supplemental O2 at home. Low concern at this time fo infection. - initiated on Spiriva - cont duonebulizers - switch IV to PO steroids - SaO2 goal 88-92% (2) Atrial fibrillation Comment: - cont warfarin, dosed by INR - cont Tikosyn (3) Heart failure with reduced ejection fraction Comment: TTE here in 2014 with EF 20-25%. Outside records pending, as pt has frequent TTEs with [facility]. s/p ICD. - cont home carvedilol, Bumex - unclear why not on spironolactone or KEIRY/ARB - pending records (4) CAD (coronary artery disease) Comment: - cont home Plavix, statin (5) DVT prophylaxis Current Visit: Yes Status: Acute Code(s): Z29.9 - ENCOUNTER FOR PROPHYLACTIC MEASURES, UNSPECIFIED SNOMED Code(s): 739212299 Comment: on warfarin (6) DNR (do not resuscitate) Current Visit: Yes Status: Acute
[2019-07-16 15:38] VITALS: BP 108/40
[2019-07-16] MEDS ORDERED: Warfarin TAB(*) 3 MG PO ONE (17:00)
--- NOTE | 2019-07-17 00:25 | DS ---
CC: Naveen Isbell MD * DISCHARGE SUMMARY: DATE OF ADMISSION: 07/16/19 DATE OF DISCHARGE: 07/16/19 PRIMARY CARE PHYSICIAN: Naveen Isbell MD PRIMARY DIAGNOSIS: Chronic obstructive pulmonary disease exacerbation. SECONDARY DIAGNOSES: 1. Heart failure with reduced ejection fraction. 2. Paroxysmal atrial fibrillation. 3. Coronary artery disease, status post coronary artery bypass graft. 4. Significant tobacco use, quit in the . 5. Insulin-dependent diabetes. DISCHARGE MEDICATIONS: 1. Tiotropium bromide 1 inhalation daily. 2. Albuterol inhaler 1 puff every 4 hours as needed for shortness of breath. 3. Atrovent nebulizer up to 3 times a day as needed for shortness of breath. 4. Prednisone 40 mg daily for 4 more days. 5. Bumetanide 1 mg daily. 6. Warfarin 3 mg daily. 7. Glimepiride 2 mg twice a day. 8. Tikosyn 125 mcg every 12 hours. 9. Clopidogrel 75 mg daily. 10. Carvedilol 25 mg twice a day. 11. Atorvastatin 10 mg daily. 12. Allopurinol 300 mg daily. 13. Pregabalin 50 mg 3 times a day. 14. Nitroglycerin 0.4 mg every 5 minutes as needed for chest pain. 15. Multivitamins. 16. [place]-3. 17. Glucosamine chondroitin. HISTORY OF PRESENT ILLNESS: Mr. Silva is an 83-year-old man with ischemic cardiomyopathy with reduced ejection fraction; CAD, status post CABG; hypertension; atrial fibrillation, on Coumadin and Tikosyn; CKD; former smoker; and diabetes, who is presenting with progressive shortness of breath. He reports on the day prior to admission feeling progressive short of breath associated with a productive cough with yellow sputum, although this cough has been ongoing for a week. He reports recently helping someone move things out of their basement and having significant dust exposure. He reports history of albuterol inhaler use, but reports he never had a diagnosis for this need and states he rarely uses it. He denies wheezing. With EMS, he was found to be hypoxic to 84% on room air, so he was given DuoNeb, 10 mg of dexamethasone and transported to [facility] Emergency Room. HOSPITAL COURSE: In the emergency room, he was given another nebulizer treatment and desatted to 83% on ambulation, so he was referred to the hospitalist service for further evaluation. His BNP was elevated to 616 and he does report by annual echocardiograms with the outpatient strip machine operator Dr. Luther. The patient denied orthopnea, lower extremity swelling. He states he has had heart failure exacerbation before and that this does not feel like that. He was given another dose of IV steroids as well as furosemide 40 mg IV and watched for several hours overnight. In the morning, the patient was able to be titrated off supplemental oxygen and was saturating 92% or greater on room air and with ambulation. He reports feeling well and back to his baseline. We extensively discussed possible diagnosis of COPD given wheeze on exam, history of smoking, and chest x-ray with hyperinflation. The patient and his family at bedside were educated on treatment plan with short burst of steroids as well as starting daily inhaler with Spiriva. His pharmacy confirmed his co-pay will be $1 for these medication. The patient was noted to have hyperglycemia in hospital after being given IV steroids. He reports having a blood glucose monitor at home and he would call his PCP if he noticed persistently elevated blood sugar after switching to oral prednisone. PERTINENT STUDIES AND LABS: Hemoglobin 13.0, which is slightly better than the patient's baseline and MCV is 101. INR 2.53, on warfarin. Creatinine 1.52 which also appears better than the patient's baseline earlier this year. Vitamin B12 level was 438, and folate greater than 20, with methylmalonic acid and homocysteine pending on discharge. Chest x-ray was with the findings consistent with COPD given lungs hyperinflated. No evidence for acute disease, status post coronary artery bypass graft with multilead transvenous pacemaker defibrillator. EKG with normal sinus rhythm, rate 82, with nonspecific interventricular conduction delay. DISCHARGE PLAN: The patient is to follow up with his primary care physician, Dr. Isbell, for management of his chronic medical problems. He should be referred for pulmonary function testing given the likelihood of COPD diagnosis. He was discharged on a new inhaler Spiriva as well as a prednisone burst, but otherwise his medications remained unchanged. He was educated to check his fingersticks and contact his PCP if they are persistently above 200 or he begins having symptoms of increased thirst or increased urination. He should continue to follow up with Dr. Luther of Cardiology for his known coronary artery disease; heart failure and atrial fibrillation, on Tikosyn. He was educated on proper use of albuterol inhaler and when to seek medical care. He was also given return precautions which include but are not limited to chest pain, fevers, or worsening shortness of breath. He is to resume healthy diet and activity as tolerated. DISPOSITION: To home. CONDITION: Good. TIME SPENT: Approximately 60 minutes was spent on discharge of this patient, more than half of which was spent with care coordination at bedside. [id number]/[facility] #: [id number] ISABEL
[2019-07-17] MEDS ORDERED: Bumetanide TAB* 1 MG PO SCH (09:00)
[2019-07-17] MEDS ORDERED: predniSONE TAB* 20 MG PO SCH (09:00)
== END 2019-07-16 16:30 | disposition home or self-care (01) ==
LOC: ED 20:23 → MEDTELE 07-16 00:35
PROVIDERS: ADMIT Internal Medicine; ATTEND Internal Medicine
DX: J44.1 Chronic obstructive pulmonary disease with (acute) exacerbation (principal); I50.20 Unspecified systolic (congestive) heart failure; E11.9 Type 2 diabetes mellitus without complications; Z79.4 Long term (current) use of insulin; I25.10 Atherosclerotic heart disease of native coronary artery without angina pectoris; I48.0 Paroxysmal atrial fibrillation; E78.5 Hyperlipidemia, unspecified; I25.5 Ischemic cardiomyopathy; Z95.5 Presence of coronary angioplasty implant and graft; F17.210 Nicotine dependence, cigarettes, uncomplicated; Z79.01 Long term (current) use of anticoagulants; Z79.899 Other long term (current) drug therapy
CPT/HCPCS: 36415; 71046; 80048; 80053; 82607; 82746; 83090; 83735; 83880; 83921; 84484; 85025; 85610; 86140; 93005; 94640; 96374; 96375; 99284; A9270-GY; G0378; J1940; J2920; J3535